=== PATIENT | female | born 1985 ===

== ENCOUNTER 2019-06-08 13:15 | Emergency (ER) | payer OTHER ==
--- NOTE | 2019-06-08 13:37 | UC ---
Skin Complaint HPI - HPI Summary HPI Summary: 34 y/o female presents to the urgent care c/o itchy rash in different parts of her body for the past 2 weeks. She reports all the family has been exposed to scabies and since his insurance has not authorized the Permethrin treatment all at once scabies has been jumping around all members of the family. One of her daughters is the one who started w/ the scabies and now her rash is almost gone, but she wants to treat everyone at once to completely eradicate it. She has been washing all clothes and linens w/o any eradication success. In the morning they all have a 20min session of scratching and she is tire of all this. Mother denies fever, URI, abdominal pain, chest pain, SOB, edema, urinary symptoms, N/V/D. - History of Current Complaint Time Seen by Provider: 06/08/19 13:35 Stated Complaint: RASH Hx Obtained From: Patient Onset/Duration: Gradual Onset, Lasting Weeks - 2 weeks w/ itchy rash, Still Present Skin Exposure Onset/Duration: Weeks Ago - 6 weeks ago Timing: Constant Onset Severity: Mild Current Severity: Mild Pain Intensity: 0 Pain Scale Used: 0-10 Numeric Location: Discrete - B/l arms, back and abdomen, groin area w/ itchy rash Character: Pruritus, Redness Aggravating Factor(s): Touch Alleviating Factor(s): Nothing Associated Signs & Symptoms: Positive: Rash - B/l arms, back and abdomen, groin area w/ itchy rash. Negative: Difficulty Breathing, Fever, Chills, Hoarseness, Throat Tightening, Drainage, Tenderness Related History: Other: - scabies exposure - Allergy/Home Medications Allergies/Adverse Reactions: Allergies Allergy/AdvReac Type Severity Reaction Status Date / Time Penicillins Allergy Severe Rash Verified 06/10/19 18:33 cephalexin [From Keflex] Allergy Unknown Hallucinati Verified 06/10/19 18:33 ons oxycodone [From Percocet] Allergy Unknown JITTERY, Verified 06/10/19 18:33 HALLUCINATIONS prochlorperazine Allergy Unknown Hallucinati Verified 06/10/19 18:33 [From Compazine] ons Home Medications: Home Medications Pnv No.95/Ferrous Fum/Folic AC [ Tablet] 1 tab PO DAILY 06/08/19 [ History Confirmed 06/08/19] PMH/Surg Hx/FS Hx/Imm Hx Previously Healthy: Yes Other Neurological History: B/L complex regional pain syndrome - Family History Known Family History: Positive: Hypertension, Diabetes - Social History Occupation: Unemployed Lives: With Family Review of Systems All Other Systems Reviewed And Are Negative: Yes Constitutional: Positive: Negative Skin: Positive: Rash - itchy rash in different part of ehr body s/p scabies exposure Eyes: Positive: Negative ENT: Positive: Negative Respiratory: Positive: Negative Cardiovascular: Positive: Negative Gastrointestinal: Positive: Negative Genitourinary: Positive: Negative Motor: Positive: Negative Neurovascular: Positive: Negative Musculoskeletal: Positive: Negative Neurological: Positive: Negative Psychological: Positive: Negative Is Patient Immunocompromised?: No Physical Exam - Summary Physical Exam Summary: Vital Signs Reviewed: Yes General: well developed, well nourished female sitting in the examining table w/o any apparent distress. Eyes: Positive: Conjunctiva Clear - PERRLA, EOMI ENT: Positive: Normal ENT inspection, Hearing grossly normal, Pharynx normal, TMs normal Neck: Positive: Supple, Nontender, No Lymphadenopathy Respiratory: Positive: Chest nontender, Lungs clear, Normal breath sounds Cardiovascular: Positive: RRR, No Murmur, Pulses Normal Abdomen Description: Positive: Nontender, No Organomegaly, Soft. Negative: CVA Tenderness (R), CVA Tenderness (L) Bowel Sounds: Positive: Present Musculoskeletal: Positive: Strength Intact, ROM Intact, No Edema Neurological Exam: Normal Psychological Exam: Normal Skin: Positive: Positive:symmetric linear burrows and erythematous papules on the web spaces of B/L wrists, abdomen and back and lower legs, w/ signs of excoriations.non tender to palpation, no discharge observed Triage Information Reviewed: Yes Course/Dx - Course Course Of Treatment: 34 y/o female presents to the urgent care c/o itchy rash in different parts of her body for the past 2 weeks. She reports all the family has been exposed to scabies and since his insurance has not authorized the Permethrin treatment all at once scabies has been jumping around all members of the family. One of her daughters is the one who started w/ the scabies and now her rash is almost gone, but she wants to treat everyone at once to completely eradicate it. She has been washing all clothes and linens w/o any eradication success. In the morning they all have a 20min session of scratching and she is tire of all this. Mother denies fever, URI, abdominal pain, chest pain, SOB, edema, urinary symptoms, N/V/D. Hx obtained. Pt w/ possible scabies rash. Since all the family is going to be treated at once this time we will repeat the TX w. Rx Permethrin topical, Caladryl topical cream to alleviate symptoms. Pt advised to educated in how to eradicate and clean clothing and bedding. Advised If not improvement of symptoms to f/u w/ her OBGYN for further treatment. Pt agreed w/ D/C instructions. - Differential Diagnoses - Skin Complaint Differential Diagnoses: Cellulitis, Contact Dermatitis, Local Allergic Reaction , MRSA, Scabies, Tinea, Urticaria - Diagnoses Provider Diagnosis: Scabies Discharge ED - Sign-Out/Discharge Documenting (check all that apply): Patient Departure - d/c home All imaging exams completed and their final reports reviewed: No Studies - Discharge Plan Condition: Stable Disposition: HOME Prescriptions: Calamine/Pramoxine LOTION* [Caladryl LOTION*] 1 applic .SEE ORDER BID #1 btl Permethrin 5% CREAM* 1 applic TOPICAL SEE INSTRUCTIONS #1 tube Patient Education Materials: Scabies (ED) Referrals: [facility] [place] [facility] [Outside] - 3 Days Additional Instructions: 1-Please apply medication as directed for scabies. If not resolution completely use repeat treatment in 10-14 days. Please wash all clothings and beddings w/ hot water. Clean mattresses 2- Use the Caladryl topical cream to alleviate itching. after you wash off Permethrin topical cream 3-Take Benadryl PO prn to alleviate itchiness. 4-If symptoms do not improve or worsen please f/u with your PCP in 3 days or return to the urgent care for further evaluation and treatment. - Billing Disposition and Condition Condition: STABLE Disposition: Home - Attestation Statements Provider Attestation: This patient was not seen by me I was available for consult Chart reviewed RAMIREZ
[2019-06-08 13:43] VITALS: BP 106/61
== END 2019-06-08 14:07 | disposition home or self-care (01) ==
LOC: UCCORT 13:15
DX: O99.711 Diseases of the skin and subcutaneous tissue complicating pregnancy, first trimester (principal); B86 Scabies; Z88.0 Allergy status to penicillin; Z88.6 Allergy status to analgesic agent; Z88.1 Allergy status to other antibiotic agents; Z88.5 Allergy status to narcotic agent; Z88.8 Allergy status to other drugs, medicaments and biological substances
CPT/HCPCS: 99212; G0463

== ENCOUNTER 2019-06-10 18:08 | Emergency (ER) | payer OTHER ==
--- NOTE | 2019-06-10 18:35 | UC ---
Respiratory Complaint HPI - HPI Summary HPI Summary: Cough and headache x1 day with No fever. Has not tried otc meds. Currently . +sick contacts She is here w/ her family who have another scabies outbreak. sHe is asking for refill. - History of Current Complaint Chief Complaint: UCRespiratory Stated Complaint: COUGH Time Seen by Provider: 06/10/19 18:21 Hx Obtained From: Patient Hx Last Menstrual Period: OCTOBER 2018 Character: Cough: Nonproductive Aggravating Factors: Nothing Alleviating Factors: Nothing Associated Signs And Symptoms: Positive: URI, Nasal Congestion. Negative: Dyspnea, Fever, Chills, Wheezing, Sinus Discomfort - Allergies/Home Medications Allergies/Adverse Reactions: Allergies Allergy/AdvReac Type Severity Reaction Status Date / Time Penicillins Allergy Severe Rash Verified 06/10/19 18:33 cephalexin [From Keflex] Allergy Unknown Hallucinati Verified 06/10/19 18:33 ons oxycodone [From Percocet] Allergy Unknown JITTERY, Verified 06/10/19 18:33 HALLUCINATIONS prochlorperazine Allergy Unknown Hallucinati Verified 06/10/19 18:33 [From Compazine] ons PMH/Surg Hx/FS Hx/Imm Hx - Additional Past Medical History Additional PMH: currently but no chronic conditions. Previously Healthy: Yes - Surgical History Surgical History: Yes Surgery Procedure, Year, and Place: - 3 - Family History Known Family History: Positive: Hypertension, Diabetes - Social History Alcohol Use: None Substance Use Type: None Smoking Status (MU): Never Smoked Tobacco Review of Systems All Other Systems Reviewed And Are Negative: Yes Constitutional: Negative: Fever, Chills, Fatigue Skin: Negative: Rash ENT: Positive: Sinus Congestion. Negative: Sore Throat Respiratory: Positive: Cough - nonproductive Cardiovascular: Positive: Negative Gastrointestinal: Negative: Vomiting, Nausea Musculoskeletal: Negative: Myalgia Neurological: Negative: Headache Physical Exam Triage Information Reviewed: Yes Appearance: Well-Appearing Vital Signs Reviewed: Yes Eyes: Positive: Conjunctiva Clear ENT: Positive: Pharynx normal, TMs normal Neck: Positive: Supple, Nontender, No Lymphadenopathy Respiratory Exam: Normal Cardiovascular Exam: Normal Neurological: Positive: Alert Respiratory Course/Dx - Course Course Of Treatment: Cough for one day in an afebrile pt. exam was unremarkable and she does have many sick contacts at home. viral etiology. Increased fluids and rest for tx. self limiting. Slightly tachycardic but overall good vitals. Of note she is asking for refill of scabies meds; refilled. - Differential Dx/Diagnosis Differential Diagnosis/HQI/PQRI: Bronchitis, Lower Resp Infection, Other Provider Diagnosis: URI (upper respiratory infection) Discharge ED - Sign-Out/Discharge Documenting (check all that apply): Patient Departure All imaging exams completed and their final reports reviewed: No Studies - Discharge Plan Condition: Good Disposition: HOME Prescriptions: Permethrin 5% CREAM* 1 applic TOPICAL SEE INSTRUCTIONS #1 tube Patient Education Materials: Upper Respiratory Infection (ED) Referrals: No Primary Care Phys,NOPCP [Primary Care Provider] - Additional Instructions: if no improvement or worsening please f/u w/ your primary care provider. - Billing Disposition and Condition Condition: GOOD Disposition: Home
[2019-06-10 18:36] VITALS: BP 112/64
== END 2019-06-10 19:31 | disposition home or self-care (01) ==
LOC: UCCORT 18:08
DX: O26.899 Other specified pregnancy related conditions, unspecified trimester (principal); J06.9 Acute upper respiratory infection, unspecified; B86 Scabies; Z3A.00 Weeks of gestation of pregnancy not specified; Z88.0 Allergy status to penicillin; Z88.5 Allergy status to narcotic agent; Z88.8 Allergy status to other drugs, medicaments and biological substances
CPT/HCPCS: 99211; G0463